=== PATIENT | female | born 1995 | race Caucasian/White ===

== ENCOUNTER 2018-10-01 16:49 | Emergency (ER) | payer OTHER ==
[~2018-10-01] VITALS: Ht 165.1 cm; Wt 56.2 kg
== END 2018-10-01 17:47 | disposition home or self-care (01) ==
LOC: ER 16:49
DX: M25.531 Pain in right wrist (principal)

== ENCOUNTER 2019-03-06 14:36 | Emergency (ER) | payer OTHER ==
[~2019-03-06] VITALS: Ht 167.6 cm; Wt 591.9 kg
== END 2019-03-06 20:20 | disposition home or self-care (01) ==
LOC: ER 14:36
DX: N39.0 Urinary tract infection, site not specified (principal)